=== PATIENT | female | born 1940 | race Hispanic/Latino ===

== ENCOUNTER 2017-08-16 08:46 | Emergency (ER) | payer MEDICARE ==
[2017-08-16 08:47] VITALS: BMI 37.2
--- NOTE | 2017-08-16 09:16 | ED PDOC ---
Arrival/HPI - General Chief Complaint: Lower Extremity Problem/Injury Time Seen by Provider: 08/16/17 09:07 Historian: Patient - History of Present Illness Narrative History of Present Illness (Text): 08/16/17 09:13 77yo female with no significant PMHx present with complaint of left sided lower back pain that radiates to her lower leg x 8days. She states pain is with ambulation. describes it as sharp. states she saw her PMD few days ago and was given Ibuprofen 800mg for sciatica. Notes taking the medication without relieve. she report previous history of similar pain last year September that resolved after 4days. She denies urinary/fecal incontinence, abdominal pain, dizziness, focal weakness, trauma, urinary symptoms, saddle anesthesia. Past Medical History - Provider Review Nursing Documentation Reviewed: Yes - Infectious Disease Hx of Infectious Diseases: None - Tetanus Immunization Tetanus Immunization: Unknown - Past Medical History Past Medical History: No Previous - Cardiac Hx Cardiac Disorders: No - Pulmonary Hx Respiratory Disorders: No - Neurological Hx Neurological Disorder: No - HEENT Hx HEENT Disorder: No - Renal Hx Renal Disorder: No - Endocrine/Metabolic Hx Endocrine Disorders: No - Hematological/Oncological Hx Blood Disorders: No - Integumentary Hx Dermatological Disorder: No - Musculoskeletal/Rheumatological Hx Musculoskeletal Disorders: No Hx Falls: No - Gastrointestinal Hx Gastrointestinal Disorders: No - Genitourinary/Gynecological Hx Genitourinary Disorders: No - Psychiatric Hx Psychophysiologic Disorder: No Hx Substance Use: No - Surgical History Hx Inguinal Hernia Repair: Yes Family/Social History - Physician Review Nursing Documentation Reviewed: Yes Family/Social History: Unknown Family HX Smoking Status: Never Smoked Hx Alcohol Use: No Hx Substance Use: No Hx Substance Use Treatment: No Allergies/Home Meds Allergies/Adverse Reactions: Allergies No Known Allergies Allergy (Verified 08/16/17 09:05) Home Medications: Home Meds Medication Instructions Recorded Confirmed Cyclobenzaprine [Flexeril] 1 tab PO TID PRN 08/16/17 08/16/17 Ibuprofen [Motrin Tab] 800 mg PO TID 08/16/17 08/16/17 Pantoprazole Sodium [Protonix] 40 mg PO DAILY 08/16/17 08/16/17 Review of Systems - Physician Review All systems were reviewed & negative as marked: Yes - Review of Systems Constitutional: Normal Eyes: Normal ENT: Normal Respiratory: Normal Cardiovascular: Normal Gastrointestinal: Normal Genitourinary Female: Normal Musculoskeletal: Back Pain Skin: Normal Neurological: Normal Endocrine: Normal Hemo/Lymphatic: Normal Psychiatric: Normal Physical Exam Vital Signs Reviewed: Yes Vital Signs Temp Pulse Resp BP Pulse Ox 08/16/17 08:51 97.6 F 77 16 161/84 H 97 Temperature: Afebrile Blood Pressure: Normal Pulse: Regular Respiratory Rate: Normal Appearance: Positive for: Well-Appearing, Non-Toxic, Comfortable Pain Distress: None Mental Status: Positive for: Alert and Oriented X 3 - Systems Exam Head: Present: Atraumatic, Normocephalic Pupils: Present: PERRL Extroacular Muscles: Present: EOMI Conjunctiva: Present: Normal Mouth: Present: Moist Mucous Membranes Neck: Present: Normal Range of Motion Respiratory/Chest: Present: Clear to Auscultation, Good Air Exchange. No: Respiratory Distress, Accessory Muscle Use Cardiovascular: Present: Regular Rate and Rhythm, Normal S1, S2. No: Murmurs Abdomen: Present: Normal Bowel Sounds. No: Tenderness, Distention, Peritoneal Signs Back: Present: Paraspinal Tenderness (Left paralumbar tenderness), Pain with Leg Raise (Left leg). No: Midline Tenderness Upper Extremity: Present: Normal Inspection. No: Cyanosis, Edema Lower Extremity: Present: Normal Inspection. No: Edema Neurological: Present: GCS=15, CN II-XII Intact, Speech Normal Skin: Present: Warm, Dry, Normal Color. No: Rashes Psychiatric: Present: Alert, Oriented x 3, Normal Insight, Normal Concentration Medical Decision Making ED Course and Treatment: 08/16/17 10:06 PT's pain was controlled in ED with medication. She states her pain is much better. Ambulatory and have no focal neurological deficit. The LS CT that was ordered was cancelled secondary to pt's statement that she feels much better with medication and also her report of previous history of similar symptom. She was DC home with rx of Tramadol 50mg for sever pain and referred to ortho. Advised TRT ED for any new symptoms. - Medication Orders Current Medication Orders: Discontinued Medications Cyclobenzaprine HCl (Flexeril) 10 mg PO STAT STA Stop: 08/16/17 09:13 Last Admin: 08/16/17 09:23 Dose: 10 mg Ketorolac Tromethamine (Toradol) 60 mg IM STAT STA Stop: 08/16/17 09:13 Last Admin: 08/16/17 09:23 Dose: 60 mg MAR Pain Assessment Document 08/16/17 09:23 TA (Rec: 08/16/17 09:24 TA [id number]) Pain Reassessment Is this a pain reassessment? No Sleep Is patient sleeping during reassessment? No Presence of Pain Presence of Pain Yes Pain Scale Used Pain Scale Used Numeric Location Left, Right or Bilateral Left Pain Location Body Site Hip Description Description Throbbing Intensity of Pain at present 6 Acceptable Level of Pain 0 Radiation Location Left Leg Pain Behavior Moaning Aggravating Factors ADL's Alleviating Factors/Management Medication Techniques Alleviating Factors Medication IM Administration Charges Document 08/16/17 09:23 TA (Rec: 08/16/17 09:24 TA [id number]) Injection Site MAR Injection Site Left Gluteus Charly Charges for Administration # of IM Administrations 1 Disposition/Present on Arrival - Present on Arrival Any Indicators Present on Arrival: No History of DVT/PE: No History of Uncontrolled Diabetes: No Urinary Catheter: No History of Decub. Ulcer: No History Surgical Site Infection Following: None - Disposition Have Diagnosis and Disposition been Completed?: Yes Diagnosis: Sciatica, Back pain Disposition: HOME/ ROUTINE Disposition Time: 10:05 Patient Plan: Discharge Patient Problems: Current Active Problems Problem Status Onset Back pain Acute Sciatica Acute Condition: STABLE Discharge Instructions (ExitCare): Low Back Pain in Adults, Sciatica (DC) Additional Instructions: Follow up with your doctor Return to ED for any new or worsening symptoms Prescriptions: traMADol [Ultram] 50 mg PO TID #9 tab Referrals: Yordy Gerardo MD [Primary Care Provider] - Follow up with primary Gregory Stanley MD [Staff Provider] - Follow up with primary Forms: [employer] (Khmer)
[2017-08-16 09:22] VITALS: BP 161/84; PULSE 77; RESP 16; TEMP 97.6; O2SAT 97
== END 2017-08-16 10:11 | disposition home or self-care (01) ==
LOC: ED 08:46
DX: M54.40 Lumbago with sciatica, unspecified side (principal)
CPT/HCPCS: 96372; 99283; J1885